=== PATIENT | female | born 1960 | race African-American/Black ===

== ENCOUNTER 2016-07-23 22:46 | Emergency (ER) | payer MEDICAID, OTHER ==
[~2016-07-23] VITALS: Ht 162.6 cm; Wt 108.9 kg
[~2016-07-23 22:46] MED LIST: AUGMENTIN 875-1 EAC1 ORAL; FUROSEMIDE40 MG ORAL; METFORMIN HCL1000 M1 ORAL; NORCO 7.5/3251 EA ORAL; NORVASC10 MG ORAL; PERCOCET 5-3251 EACH ORAL; TRAMADOL HCL50 MG ORAL; VICODIN ES1 EA ORAL; ZOFRAN4 MG ORAL
[2016-07-23 23:12] VITALS: BP 139/84
[2016-07-23] MEDS ORDERED: BACTRIM DS TAB1 EAC1 ORAL (23:52)
--- NOTE | 2016-07-23 23:52 | Emergency Room Report ---
History of Present Illness General Chief Complaint: Upper Extremity Injury Source: Patient Present Illness HPI This is a 55-year-old female who is right-hand dominant. She does bite her fingernails. She presents with swelling to the right index finger. Onset for last day. No fever or chills. Worse with palpation. She did not know something better. No other complaint. Pain is 5/10. Allergies: Coded Allergies: ERYTHROMYCIN LACTOBIONATE (Verified Allergy, Mild, Hives, 09/14/12) Patient History Past Medical History: see triage record, old chart reviewed Past Surgical History: other Pertinent Family History: none Social History: Denies: smoking Last Menstrual Period: NO MORE Now: No Immunizations: other Reviewed Nursing Documentation: PMH: Agreed, PSxH: Agreed Nursing Documentation-PMH Hx Cardiac Problems: No Hx Hypertension: Yes Hx Asthma: Yes Hx COPD: No Hx Diabetes: Yes Hx Cancer: No Hx Gastrointestinal Problems: No Hx Dialysis: No Hx Neurological Problems: No Hx Cerebrovascular Accident: No Hx Seizures: No Review of Systems Eye: Denies: blurred vision, eye pain ENT: Denies: ear pain, nose congestion, throat swelling Respiratory: Denies: cough, shortness of breath Cardiovascular: Denies: chest pain, palpitations Gastrointestinal: Denies: abdominal pain, diarrhea, nausea, vomiting Musculoskeletal: Denies: back pain, joint pain Skin: Denies: rash Neurological: Denies: headache, numbness Endocrine: Denies: increased thirst, increased urine Hematologic/Lymphatic: Denies: easy bruising All Other Systems: negative except mentioned in HPI Physical Exam Vital Signs Date Time Temp Pulse Resp B/P Pulse Ox O2 Delivery O2 Flow Rate FiO2 07/23/16 23:02 97.9 82 20 145/88 98 Room Air vitals normal Sp02 EP Interpretation: reviewed, normal General Appearance: well appearing, no apparent distress, alert Head: normocephalic, atraumatic Eyes: bilateral eye EOMI, bilateral eye PERRL ENT: hearing grossly normal, normal pharynx Neck: full range of motion, supple, no meningismus Respiratory: chest non-tender, lungs clear, normal breath sounds Cardiovascular #1: regular rate, rhythm, no murmur Gastrointestinal: normal bowel sounds, non tender, no mass, no organomegaly, no bruit, non-distended Musculoskeletal: back normal, gait/station normal, normal range of motion, other - right index finger: small paronychia Psychiatric: mood/affect normal Skin: warm/dry Procedures Incision and Drainage Incision and Drainage : Consent: Verbal Site: right index finger Blade Size: 11 I & D Procedure: betadine prep Wound Location: upper extremity Wound's Depth, Shape: superficial Patient Tolerated: Well Complications: None Progress using 11 blade scalpel, i ran it along the nail. small amount of pus. Medical Decision Making Diagnostic Impression: Primary Impression: Paronychia of finger Qualified Codes: L03.011 - Cellulitis of right finger ER Course Patient with a small paronychia. No deep infection. No felon. We'll discharge home. Last Vital Signs Date Time Temp Pulse Resp B/P Pulse Ox O2 Delivery O2 Flow Rate FiO2 07/23/16 23:02 97.9 82 20 145/88 98 Room Air Status: improved Disposition: HOME, SELF-CARE Condition: Stable Scripts Trimethoprim/Sulfamethoxazole 160/800* (BACTRIM DS TABLET*) 1 Each Tablet 1 TAB ORAL Q12H, #14 TAB 0 Refills Prov: COLBY SZYMANSKI M.D. 07/23/16 Referrals: NON PHYSICIAN (PCP) Additional Instructions: Follow up with your doctor in 7 days. Return if worse. COLBY SZYMANSKI M.D. July 23, 2016 23:52
[2016-07-23 23:57] VITALS: BP 139/85
== END 2016-07-23 23:57 | disposition home or self-care (01) ==
LOC: EMR 23:15
DX: L03.011 Cellulitis of right finger (principal); I10 Essential (primary) hypertension; E11.9 Type 2 diabetes mellitus without complications; J45.909 Unspecified asthma, uncomplicated
CPT/HCPCS: 10060

== ENCOUNTER 2017-05-04 06:21 | Emergency (ER) | payer MEDICAID ==
[~2017-05-04] VITALS: Ht 162.6 cm; Wt 111.1 kg
[~2017-05-04 06:21] MED LIST changes: +BACTRIM DS TAB1 EAC1 ORAL
[2017-05-04 06:45] VITALS: BP 144/93
--- NOTE | 2017-05-04 06:51 | Emergency Room Report ---
History of Present Illness General Chief Complaint: Pain Source: Patient Present Illness HPI Patient is a 56-year-old female who presented after increased left foot pain. Patient reports having gradual onset of aching type pain. This is predominantly to the left side of the left foot. Patient is present with her son. She denies any increased swelling. She denies any numbness or tingling. Patient reports prior history of diabetes. She denies any recent trauma. She reports having prior history of chronic pain to her low back. She states she has been using her left foot for majority of weight bearing do to previous surgery Allergies: Coded Allergies: ERYTHROMYCIN LACTOBIONATE (Verified Allergy, Mild, Hives, 09/14/12) Patient History Past Medical History: see triage record Now: No Reviewed Nursing Documentation: PMH: Agreed, PSxH: Agreed Nursing Documentation-PMH Past Medical History: No History, Except For Hx Cardiac Problems: No Hx Hypertension: Yes Hx Asthma: Yes Hx COPD: No Hx Diabetes: Yes - Type 2 Hx Cancer: No Hx Gastrointestinal Problems: No Hx Dialysis: No Hx Neurological Problems: No Hx Cerebrovascular Accident: No Hx Seizures: No Review of Systems All Other Systems: negative except mentioned in HPI Physical Exam Vital Signs Date Time Temp Pulse Resp B/P (MAP) Pulse Ox O2 Delivery O2 Flow Rate FiO2 05/04/17 06:35 97.9 87 16 144/93 99 Room Air General Appearance: well appearing, no apparent distress, alert, GCS 15, obese Head: normocephalic, atraumatic ENT: hearing grossly normal, normal voice Neck: full range of motion, supple Respiratory: no respiratory distress, speaking full sentences Cardiovascular #1: normal inspection Musculoskeletal: normal inspection, digits/nails normal, normal range of motion , no calf tenderness, other - no erythema no bony tenderness Neurologic: normal inspection, alert, oriented x3, responsive, 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 Differential diagnoses include was was not limited to cellulitis, foreign body, fracture, plantar fasciitis, vascular insufficiency, sprain. Because of complexity of patient's case imaging studies were ordered. The foot x-ray left foot 3 views interpreted by me indication pain the degenerative changes without evident fracture normal bony alignment. The patient appears to have pain consistent with arthritis pain. Patient was given Tylenol. The patient was advised that she may need MRI of her back if the pain persists. She has negative straight leg raise on the left. Pulses are intact The patient is advised to follow up with primary care doctor in 1-2 days. Patient is advised to return if any worsening condition or if any changes in status that are concerning. This report is dictated with [employer] cardboard inserter software which may occasionally lead to discrepancies related to use of this software. Last Vital Signs Date Time Temp Pulse Resp B/P (MAP) Pulse Ox O2 Delivery O2 Flow Rate FiO2 05/04/17 06:35 97.9 87 16 144/93 99 Room Air Status: improved Disposition: HOME, SELF-CARE Condition: Stable Scripts Acetaminophen* (ACETAMINOPHEN EXTRA STRENGTH*) 500 Mg Tablet 500 MG ORAL Q6H, #30 TAB Prov: Kristopher Nickerson 05/04/17 Lidocaine (Lidocaine) 1 Each Adh..patch 700 MG TP DAILY, #10 PATCH Prov: Kristopher Nickerson 05/04/17 Kristopher Nickerson May 04, 2017 06:51
[2017-05-04] MEDS ORDERED: Acetaminophen 500mg (ES) tab ORAL ONE (07:00)
[2017-05-04] MEDS ORDERED: LIDOCAINE700 M1 TP (07:04)
[2017-05-04] MEDS ORDERED: ACETAMINOPHEN500 M3 ORAL (07:04)
[2017-05-04 07:15] VITALS: BP 144/93
--- NOTE | 2017-05-04 09:08 | Diagnostic Imaging Report ---
Indication: Pain status post injury Technique: XRAY Foot Complete L Comparison: None Findings: There is no acute fracture or dislocation. Lisfranc alignment of the foot is preserved. There are dorsal and plantar calcaneal enthesophytes. Mild productive change noted about some tarsal articulations. 2 circumscribed ossific densities project lateral to the cuboid. The margins are well corticated and smooth. No focal soft tissue abnormality is appreciated. No radiopaque foreign body seen. Impression: No evidence of acute fracture or dislocation. Bipartite os perineum.
== END 2017-05-04 07:15 | disposition home or self-care (01) ==
LOC: EMR 06:59
DX: M19.072 Primary osteoarthritis, left ankle and foot (principal); I10 Essential (primary) hypertension; J45.909 Unspecified asthma, uncomplicated; E11.9 Type 2 diabetes mellitus without complications; Z88.1 Allergy status to other antibiotic agents
CPT/HCPCS: 99283

== ENCOUNTER 2018-03-26 06:00 | Emergency (ER) | payer MEDICAID ==
[~2018-03-26] VITALS: Ht 162.6 cm; Wt 111.1 kg
[~2018-03-26 06:00] MED LIST changes: +ACETAMINOPHEN500 M3 ORAL; +LIDOCAINE700 M1 TP
[2018-03-26 06:10] VITALS: BP 145/88
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
--- NOTE | 2018-03-26 06:25 | NUR ---
ED Nurse Note: ermd on bedside talking with client regarding discharge plan. pt stated she has a bump on left side of the face. ermd assess and is beggining to make a procedure. will continue to monitor.
[2018-03-26] MEDS ORDERED: GABAPENTIN300 MG ORAL (06:26)
--- NOTE | 2018-03-26 06:27 | Emergency Room Report ---
History of Present Illness General Chief Complaint: Upper Extremity Injury Source: Patient Present Illness HPI Is a 57-year-old female who is right-hand dominant. She presents with bilateral wrist pain and numbness to her fingers. Has been ongoing problem for several months now. Today she woke up and pain is mostly on the left side. She felt tingling medicine numbness to the index and thumb fingers. Nothing made it better. Nothing made it worse but is no trauma. Allergies: Coded Allergies: ERYTHROMYCIN LACTOBIONATE (Verified Allergy, Mild, Hives, 09/14/12) Patient History Past Medical History: see triage record, old chart reviewed Past Surgical History: other Pertinent Family History: none Social History: Denies: smoking Last Menstrual Period: 15 years ago Now: No Immunizations: other Reviewed Nursing Documentation: PMH: Agreed; PSxH: Agreed Nursing Documentation-PMH Hx Cardiac Problems: No Hx Hypertension: Yes Hx Asthma: Yes Hx COPD: No Hx Diabetes: Yes - Type 2 Hx Cancer: No Hx Gastrointestinal Problems: No Hx Dialysis: No Hx Neurological Problems: No Hx Cerebrovascular Accident: No Hx Seizures: No Review of Systems Eye: Denies: eye pain, blurred vision ENT: Denies: ear pain, nose congestion, throat swelling Respiratory: Denies: cough, shortness of breath Cardiovascular: Denies: chest pain, palpitations Gastrointestinal: Denies: abdominal pain, diarrhea, nausea, vomiting Musculoskeletal: Reports: joint pain; Denies: back pain Skin: Denies: rash Neurological: Denies: headache, numbness Endocrine: Denies: increased thirst, increased urine Hematologic/Lymphatic: Denies: easy bruising All Other Systems: negative except mentioned in HPI Physical Exam Vital Signs Date Time Temp Pulse Resp B/P (MAP) Pulse Ox O2 Delivery O2 Flow Rate FiO2 03/26/18 06:09 98.2 77 12 145/88 97 Room Air vitals normal Sp02 EP Interpretation: reviewed, normal General Appearance: well appearing, no apparent distress, alert Head: normocephalic, atraumatic Eyes: bilateral eye PERRL, bilateral eye EOMI ENT: hearing grossly normal, normal pharynx Neck: full range of motion, supple, no meningismus Respiratory: chest non-tender, lungs clear, normal breath sounds Cardiovascular #1: regular rate, rhythm, no murmur Gastrointestinal: normal bowel sounds, non tender, no mass, no organomegaly, no bruit, non-distended Musculoskeletal: back normal, gait/station normal, normal range of motion, other - She does have some mild tenderness over median nerve at the wrist Psychiatric: mood/affect normal Skin: warm/dry Procedures Splinting Splinting : Consent: Verbal Location: wrist Pre-Made Type: velcro Splint: volar Pre-Proc Neuro Vasc Exam: normal Post-Proc Neuro Vasc Exam: normal Patient Tolerated: Well Complications: None Medical Decision Making Diagnostic Impression: Primary Impression: Carpal tunnel syndrome on both sides ER Course Patient presents with wrist pain and paresthesia the fingers. This is most likely carpal tunnel syndrome. No evidence of any septic joint. No fracture dislocation. We'll discharge home. Last Vital Signs Date Time Temp Pulse Resp B/P (MAP) Pulse Ox O2 Delivery O2 Flow Rate FiO2 03/26/18 06:09 98.2 77 12 145/88 97 Room Air Status: unchanged Disposition: HOME, SELF-CARE Condition: Stable Scripts Gabapentin* (GABAPENTIN*) 300 Mg Capsule 300 MG ORAL THREE TIMES A DAY, #60 CAP 0 Refills Prov: Ramiro Rodriguez MD 03/26/18 Additional Instructions: Were splint for comfort. Follow-up with your doctor in 7 days. Return if worse. Ramiro Rodriguez MD Mar 26, 2018 06:27
[2018-03-26] MEDS ORDERED: BACTRIM DS TAB1 EAC1 ORAL (06:50)
[2018-03-26 07:39] VITALS: BP 125/85
--- NOTE | 2018-03-26 07:40 | NUR ---
ED Nurse Note: Discharge instructions given to pt. Answered all questions. Verbalized understanding. A + O x4. Ambulatory. ID band and Iv site removed. Left with all belongings. Left ER w/ steady gait.
== END 2018-03-26 07:40 | disposition home or self-care (01) ==
LOC: EMR 06:15 → EDBD 06:15 → EMR 07:40
DX: G56.03 Carpal tunnel syndrome, bilateral upper limbs (principal); I10 Essential (primary) hypertension; J45.909 Unspecified asthma, uncomplicated; E11.9 Type 2 diabetes mellitus without complications
CPT/HCPCS: 29125; 99283

== ENCOUNTER 2018-05-21 05:21 | Emergency (ER) | payer MEDICAID ==
[~2018-05-21] VITALS: Ht 162.6 cm; Wt 111.1 kg
[~2018-05-21 05:21] MED LIST changes: +GABAPENTIN300 MG ORAL
[2018-05-21 05:40] VITALS: BP 183/106
--- NOTE | 2018-05-21 05:47 | NUR ---
ER Nurse Note: Pt came from home c/o right second finger pain with swelling; pt stated it feels throbbing, 6/10 pain. Pt a&ox4, VSS, no signs of distress. ERMD at pt side; will continue to montior.
[2018-05-21] MEDS ORDERED: CEPHALEXIN500 MG ORAL (05:52)
[2018-05-21 05:59] VITALS: BP 183/106
--- NOTE | 2018-05-21 06:00 | NUR ---
ER Nurse Note: Pt seen, treated, medically cleared for discharge by ERMD. Discharge instructions and prescriptions given with repeat verbalziation by pt. Instructed pt follow up with primary care provider within one week. Pt a&ox4, VSS, no signs of distress. ID band removed; left with own transportation.
--- NOTE | 2018-05-22 07:45 | Emergency Room Report ---
History of Present Illness General Chief Complaint: General Complaint Source: Patient Present Illness HPI Patient is a 57-year-old female presented after increased finger swelling. Patient reports having increased discomfort to her hand. This had been localized around the nailbed. Patient had been recently chewing her nails and began having increased discomfort. She reports having some slight bleeding to her right nares. She is not on any anticoagulation. Patient denies any fever. Allergies: Coded Allergies: ERYTHROMYCIN LACTOBIONATE (Verified Allergy, Mild, Hives, 09/14/12) Patient History Past Medical History: see triage record Last Menstrual Period: KAYODE Now: No Reviewed Nursing Documentation: PMH: Agreed; PSxH: Agreed Nursing Documentation-PMH Past Medical History: No History, Except For Hx Cardiac Problems: No Hx Hypertension: Yes Hx Asthma: Yes Hx COPD: No Hx Diabetes: Yes - Type 2 Hx Cancer: No Hx Gastrointestinal Problems: No Hx Dialysis: No Hx Neurological Problems: No Hx Cerebrovascular Accident: No Hx Seizures: No Review of Systems All Other Systems: negative except mentioned in HPI Physical Exam Vital Signs Date Time Temp Pulse Resp B/P (MAP) Pulse Ox O2 Delivery O2 Flow Rate FiO2 05/21/18 05:26 97.9 84 18 183/106 96 Room Air Sp02 EP Interpretation: reviewed, normal General Appearance: normal inspection, well appearing, no apparent distress, alert, GCS 15 Head: atraumatic ENT: normal ENT inspection, hearing grossly normal, normal voice Neck: normal inspection, full range of motion, supple, no bony tend Respiratory: normal inspection, lungs clear, normal breath sounds, no respiratory distress, no retraction, no wheezing Cardiovascular #1: regular rate, rhythm, no edema Gastrointestinal: normal inspection, normal bowel sounds, non tender, soft, no guarding, no hernia Genitourinary: no CVA tenderness Musculoskeletal: normal inspection, back normal, normal range of motion Neurologic: normal inspection, alert, responsive, speech normal Psychiatric: normal inspection, judgement/insight normal, mood/affect normal Skin: normal inspection, normal color, no rash, other - slight soft tissue swelling to nailbed without any fluctuance Medical Decision Making Diagnostic Impression: Primary Impression: Paronychia ER Course Patient presented for skin rash. Differential diagnosis include was not limited to paronychial abscess, cellulitis,Alyssa among others. Patient has a benign exam and does not appear to require any further imaging or laboratory testing at this time. Patient appears to have a mild paronychial infection. There is not appear to be abscess at this time.. Patient will be given prescription for antibiotics. She was advised to have wound rechecked in 2 days and to perform warm compresses. She is advised to return if worsening. Last Vital Signs Date Time Temp Pulse Resp B/P (MAP) Pulse Ox O2 Delivery O2 Flow Rate FiO2 05/21/18 05:59 97.9 82 18 183/106 96 Room Air Status: improved Disposition: HOME, SELF-CARE Condition: Stable Scripts Cephalexin* (KEFLEX*) 500 Mg Capsule 500 MG ORAL EVERY 6 HOURS, #28 CAP Prov: Kristopher Nickerson MD 05/21/18 Referrals: NON PHYSICIAN Patient Instructions: Kristopher Womack MD May 22, 2018 07:45
== END 2018-05-21 06:00 | disposition home or self-care (01) ==
LOC: EMR 05:52
DX: L03.011 Cellulitis of right finger (principal); I10 Essential (primary) hypertension; J45.909 Unspecified asthma, uncomplicated; E11.9 Type 2 diabetes mellitus without complications; Z88.1 Allergy status to other antibiotic agents
CPT/HCPCS: 99282